=== PATIENT | female | born 1950 | race Caucasian/White ===

== ENCOUNTER 2025-05-03 11:56 | Inpatient (IN) | payer MEDICARE, OTHER, SELFPAY ==
--- NOTE | 2025-01-19 10:17 | CM ---
Addendum entered by Lis Oliva RN 01/19/25 10:26:
CM spoke with patient via live telephone. Patient confirmed demographics. Patient lives independently with . Patient does not have ahistory of VN, SNF. Patient continues to have a walker and hip kit from her previous hip replacement. Patient
is known to Outpatient PT at [facility]. Patient is active with her PCP.
Patient will use [facility] for medication services.
Patient is aware that she needs to make an appointment for 05/05.
CM will remain available as needed.
PLAN: home with outpatient PT.
Original Note:
CM reviewed medical records. CM left message.
[2025-04-20 13:50] LABS: Hematocrit 39.3 % (37.0-47.0); Hemoglobin 13.4 g/dL (12.0-16.0); Mean Corp Hgb Conc. 34.1 g/dL (33.0-37.0); Mean Corpuscular Volume 88.5 fL (81.0-99.0); Platelet Count 358 10^3/uL (130-400); Red Cell Dist. Width 13.8 % (11.5-14.5)
[2025-04-20 13:58] VITALS: BMI 25.2
[2025-04-20 14:03] LABS: ALT (SGPT) 13 U/L (0-35); AST (SGOT) 19 U/L (14-36); Albumin 4.5 g/dl (3.5-5.0); Alkaline Phosphatase 81 U/L (38-126); Blood Urea Nitrogen 12 mg/dl (7-17); Calcium 9.4 mg/dl (8.4-10.2); Carbon Dioxide 27 mmol/L (22-30); Chloride 101 mmol/L (98-107); Estimated Creatinine Clearance 58 ml/min; Glucose 106 mg/dl (70-99); Potassium 5.3 mmol/L (3.5-5.1); Sodium 135 mmol/L (135-145); Total Protein 7.5 g/dl (6.3-8.2); eGFR > 60.00
--- NOTE | 2025-04-20 15:55 | HPS.HSE ---
Family Physician
-
Family Physician: Jayjay Matias
Chief Complaint
-
L CHRISTIE MIKE
History of Present Illness
74-year-old female presenting today for advanced primary
osteoarthritis of the left hip. She has tried and failed multiple
conservative treatment measures which include activity modification,
self-directed therapeutic exercises, corticosteroid injections,
medical management with Tylenol and NSAIDs, PT, and the
application of ice and/or heat. Recent x-ray findings of the left hip
demonstrated advanced osteoarthritis with a significant erosion
deformity of the femoral head. She was determined to
be in need of a left total hip arthroplasty. She denies any current
complaints today such as chest pain, shortness of breath, palpitations,
nausea, vomiting, diarrhea, lightheadedness, dizziness, cough, sore
throat, or fever.
Medical History
Past Medical History
Past Medical History: Reports Other (see below)
Additional Past Medical History:
1. Osteoarthritis s/p R CHRISTIE CBB 10/2024.
2. Hypertension with recent medication adjustments.
3. Vertigo.
4. Anxiety.
5. Borderline DM.
Past Surgical History: Reports Other (R CHRISTIE, breast augmentation.)
Social History
Unable to obtain full social history at this time due to: Other (SOCIAL HISTORY: The patient lives in a two-story home with her . Her home has a first-floor main setup and handicapped bathrooms. She has three steps to enter into her home. )
Tobacco: Non-smoker
Alcohol: None
Personal:
Family History
Family History: Not pertinent
Allergies / Home Medications
Allergies reflects when Allergies were last updated in [employer].
Home Medications with original date entered in [employer]
Allergy/Medication List:
MEDICATIONS:
1. Lisinopril 20 mg p.o. daily.
2. Magnesium 250 mg p.o. daily as needed.
3. Atenolol 50 mg p.o. daily.
ALLERGIES: No known allergies.
Review of Systems
-
A 12 point ROS was completed and negative except as noted: Yes
Physical Exam
Physical Exam
General: Well Developed and Well Nourished
Respiratory: Clear and Wheezes
Cardiac: S1/S2 and Bradycardia
GI: Soft, Non Tender, Normal Bowel Sounds and No Hepatosplenomegaly
Musculoskeletal: Other (L hip:-pain with minimal internal and external rotation to 10 degrees. No pain with abduction to 30, flexion to 110.)
Laboratory Results
-
04/20/25 12:19
04/20/25 12:19
Laboratory Results
Total Bilirubin 0.5 mg/dl (0.2-1.3) 04/20/25 12:19
AST 19 U/L (14-36) 04/20/25 12:19
ALT 13 U/L (0-35) 04/20/25 12:19
Alkaline Phosphatase 81 U/L (38-126) 04/20/25 12:19
EKG HR 22-[id number]-pi beta melvina
Impression/Plan
-
CLEARANCES:
1. Primary medical, REGIS Lucas, cleared.
Primary medical phone number: [phone].
IMPRESSION/PLAN:
1. Advanced primary osteoarthritis of the left hip in need of a
L CHRISTIE. MIKE, early discharge.. Benefits and risks of the
procedure have been explained to the patient. The patient
understands these risks and wishes to proceed.
2. Deep vein thrombosis prophylaxis: Aspirin with bilateral
venous compression devices.
3. Controlled substance-Tramadol.
Patient's phone number: [phone].
Patient's contact (Fab Capps - Spouse): [phone].
Discharge destination:
home OP PT.
[2025-04-20 16:40] VITALS: BMI 25.2
[2025-04-21 09:40] LABS: Glycohemoglobin (HgbA1c) 6.1 % (4.0-5.6)
[2025-05-03] VITALS (14 sets, daily range): BP systolic 68–180; BP diastolic 50–94; BMI 25.2
--- NOTE | 2025-05-03 09:19 | W.PN.UPDATE ---
Update Note
Progress Note Update
L hip OA s/p L CHRISTIE w/ Dr Murphy 05/03/25
- EARLY DISCHARGE
- s/p R CHRISTIE, 10/2024, by Dr Murphy
DVT prophylaxis - ASA, b/l venous foot pumps
HTN with recent medication adjustments - + parameters - monitor BP
Vertigo
Astigmatism
Anxiety
Mild hyperkalemia
Prediabetes, A1c 6.1.
[2025-05-03] MEDS: CELEBREX 200 MG PO (12:20)
[2025-05-03] MEDS: TYLENOL 650 MG PO ×4 (12:20→23:01)
[2025-05-03] MEDS: NORMOSOL-R/PLASMALYTE-A 1000 IV (12:32)
--- NOTE | 2025-05-03 17:09 | PTCARENOTE ---
pt admitted to room 2109 from PACU. pt AAOx3- denies pain at this time. pt able to wiggle toes and feels both legs equally. bilateral pedal pulses palpable. left hip dressing CDI. pt oriented to room and unit. admission questions completed with
patient. vitals obtained. pt updated on plan of care.
[2025-05-03] MEDS: NSS 1000 IV (17:15)
[2025-05-03] MEDS: ASPIRIN 325 MG PO (17:29)
[2025-05-03] MEDS: DECADRON 4 MG PO (20:18)
[2025-05-03] MEDS: COLACE 100 MG PO (20:18)
[2025-05-03] MEDS: SENOKOT 17.2 MG PO (20:18)
[2025-05-03] MEDS: ULTRAM 50 MG PO (20:19)
[2025-05-03] MEDS: BACTROBAN 2% OINTMENT 1 APPLIC NASAL (20:21)
--- NOTE | 2025-05-03 22:26 | PTCARENOTE ---
Pt OOB to BSC with walker. PT able to void without difficulty. left hip precautions maintained. Pt did very well moving. No issues to report. Pt settled in bed per comfort. IVF infusing as ordered. Will continue to monitor.
[2025-05-03] MEDS: ANCEF 5 IV (23:00)
[2025-05-03] MEDS: ROXICODONE 10 MG PO (23:18)
[2025-05-04 03:29] VITALS: BP 110/59
[2025-05-04] MEDS: TYLENOL PO (05:07)
[2025-05-04] MEDS: ULTRAM 50 MG PO (05:09)
[2025-05-04] MEDS: ANCEF 5 IV (05:09)
[2025-05-04 07:30] VITALS: BP 122/63
[2025-05-04] MEDS: COLACE 100 MG PO (08:03)
[2025-05-04] MEDS: TYLENOL 650 MG PO (08:04)
[2025-05-04] MEDS: MOBIC 15 MG PO (08:04)
[2025-05-04] MEDS: TENORMIN 50 MG PO (08:04)
[2025-05-04] MEDS: ASPIRIN 325 MG PO (08:04)
[2025-05-04] MEDS: DECADRON 4 MG PO (08:04)
[2025-05-04] MEDS: SENOKOT 17.2 MG PO (08:04)
[2025-05-04] MEDS: BACTROBAN 2% OINTMENT 1 APPLIC NASAL (08:06)
[2025-05-04 08:51] VITALS: BP 125/62; BP 130/62; PULSE 63; O2SAT 96
[2025-05-04] MEDS: ROXICODONE 10 MG PO (08:52)
[2025-05-04 09:13] VITALS: BP 120/66; PULSE 57
--- NOTE | 2025-05-04 09:20 | CM ---
Cm reviewed medical records. IMM given. Patient confirmed outpatient PT appointment at [facility].
PLAN: outpatient PT
--- NOTE | 2025-05-04 09:37 | W.PN.ORTHO ---
Today's Communication / Plan
-
D/c today since clinically stable, did well w/ PT and OT.
D/c plan for outpatient PT at [facility] starting 05/06.
Assessment
.
Distal Motor Intact: Yes
Dressing:
Scant areas of old incisional bleeding.
Assessment:
L hip OA s/p L CHRISTIE w/ Dr Murphy 05/03/25
- EARLY DISCHARGE
- s/p R CHRISTIE, 10/2024, by Dr Murphy
DVT prophylaxis - ASA, b/l venous foot pumps
HTN with recent medication adjustments - + parameters - BPs overall stable
Vertigo
Astigmatism
Anxiety
Mild hyperkalemia
Prediabetes, A1c 6.1.
Plan
.
Surgery / Date: L CHRISTIE w/ Dr Murphy 05/03/25
DVT Prophylaxis: Aspirin
Activity:
Out of bed.
PT/OT
Discharge Plan: Home w/ Outpatient PT
Subjective
.
.:
Patient resting comfortably in her chair.
L hip pain better controlled w/ Oxycodone vs Tramadol -> will Rx upon d/c.
Denies any other significant complaints.
Eager for potential early d/c today.
Vital Signs and Labs
.
Vital Signs and Labs:
Lab Results
04/20/25 12:19
04/20/25 12:19
Temp Pulse Resp BP Pulse Ox
97.6 F 62 17 122/63 95
05/04/25 07:30 05/04/25 07:30 05/04/25 07:30 05/04/25 08:03 05/04/25 07:30
Non-invasive Hgb result: 11.5
Physical Exam
-
HEENT: No pallor, cyanosis, or jaundice. Throat clear.
NECK: Supple. No JVD.
RESPIRATORY: Lungs clear to auscultation.
CVS: S1, S2 normal. RRR.�
ABDOMEN: Soft, non-tender. No distension.
EXTREMITIES: Strength equal, no calf pain with palpation/dorsiflexion. Calves soft.
[employer]OPER: AOx3. No focal deficits. central control room operator grossly intact
--- NOTE | 2025-05-04 09:46 | W.DS.TRANS ---
DC Summary - Hearing Screener
-
Discharge Instructions:
Sleep Apnea Risk Low
Discharge Diagnosis/Procedures L hip OA s/p L CHRISTIE w/ Dr Murphy 05/03/25
Diet Regular
Additional Diets Adequate hydration, minimize opioids, and wear
TEDs stockings to prevent low blood pressure/
dizziness.
Activity With Walker,As tolerated
Driving Restrictions Not until seen by your Dr
Bathing Restrictions OK to Shower
Other Services PT
Wound Care Dressing to be removed 1 week post-surgery.
[place] to be removed at 2 week follow-up with
surgeon's office.
Instructions:
Stand-Alone Forms: Total Hip/Knee Replacement D/C
Changes to Home Medications: Yes
Discharge Medications:
DC Medications w/original date entered in [employer]
atenolol 50 mg tablet 50 mg PO DAILY Blood Pressure 11/04/24
mupirocin 2 % topical ointment 1 applic topical BID infection prevention #1 tube 04/19/25
dexamethasone 4 mg tablet 4 mg PO BID inflammation #6 tabs 04/20/25
famotidine 20 mg tablet 20 mg PO HS GI prophylaxis #30 tabs 04/20/25
meloxicam 15 mg tablet 15 mg PO DAILY anti-inflammatory #14 tabs 04/20/25
ondansetron 4 mg disintegrating tablet 4 mg PO Q6H PRN n/v #20 tabs 04/20/25
acetaminophen 500 mg tablet (Acetaminophen Extra Strength) 1,000 mg (2 x 500 mg) PO Q6H #60 tabs 05/04/25
aspirin 325 mg tablet 325 mg PO DAILY #30 tabs 05/04/25
docusate sodium 100 mg capsule 100 mg PO BID #30 caps 05/04/25
lisinopril 10 mg tablet 10 mg PO DAILY Blood Pressure #1 tab 05/04/25
magnesium hydroxide 400 mg/5 mL oral suspension (Milk of Magnesia) 30 ml PO HS PRN Constipation #355 mL 05/04/25
oxycodone 5 mg tablet 5 - 10 mg (1 - 2 x 5 mg) PO Q6H PRN moderate-severe pain #30 tabs 05/04/25
sennosides 8.6 mg tablet (Miya-clarisse) 17.2 mg (2 x 8.6 mg) PO BID #30 tabs 05/04/25
Home Medication Changes
dexamethasone 4 mg tablet 4 mg PO BID inflammation #6 tabs 04/20/25
famotidine 20 mg tablet 20 mg PO HS GI prophylaxis #30 tabs 04/20/25
meloxicam 15 mg tablet 15 mg PO DAILY anti-inflammatory #14 tabs 04/20/25
ondansetron 4 mg disintegrating tablet 4 mg PO Q6H PRN n/v #20 tabs 04/20/25
acetaminophen 500 mg tablet (Acetaminophen Extra Strength) 1,000 mg (2 x 500 mg) PO Q6H #60 tabs 05/04/25
aspirin 325 mg tablet 325 mg PO DAILY #30 tabs 05/04/25
docusate sodium 100 mg capsule 100 mg PO BID #30 caps 05/04/25
magnesium hydroxide 400 mg/5 mL oral suspension (Milk of Magnesia) 30 ml PO HS PRN Constipation #355 mL 05/04/25
oxycodone 5 mg tablet 5 - 10 mg (1 - 2 x 5 mg) PO Q6H PRN moderate-severe pain #30 tabs 05/04/25
sennosides 8.6 mg tablet (Miya-clarisse) 17.2 mg (2 x 8.6 mg) PO BID #30 tabs 05/04/25
Pending Results: No
[2025-05-04 11:00] VITALS: BP 143/72
== END 2025-05-04 11:29 | disposition home or self-care (01) | DRG 470 ==
LOC: 2 SOUTH 11:56
PROVIDERS: ADMITTING PHYSICIAN Specialist; FAMILY PHYSICIAN Nurse Practitioner Family
PROC: 0SRB04A Replacement of Left Hip Joint with Ceramic on Polyethylene Synthetic Substitute, Uncemented, Open Approach (ICD-10-PCS; 2025-05-03)
DX: M16.12 Unilateral primary osteoarthritis, left hip (principal); I10 Essential (primary) hypertension; F41.9 Anxiety disorder, unspecified; E87.5 Hyperkalemia
CPT/HCPCS: 36415; 73502; 80053; 83036; 85027; 87070; 93005; 97162; 97166; 97530; 97535; C1713; C1776